=== PATIENT | male | born 1975 | race American Indian/Alaskan Native ===

== ENCOUNTER 2016-04-25 20:00 | Inpatient (IN) | payer OTHER ==
[2016-04-25] MEDS ORDERED: CATAPRES PO ONE (20:26)
--- NOTE | 2016-04-25 20:31 | Emergency Department Report ---
Chief Complaint: Neuro Symptoms/Deficit Stated Complaint: HBP Time Seen by Provider: 04/25/16 20:26 - HPI History of Present Illness: The 10-year-old male comes in for elevated blood pressure worsening of his right- sided arm deficit as well as facial droop of the right side. 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 He reports he does take his blood pressure medicine. His new deficits started about an hour ago. .he reports that he's having numbness to the right arm as well as the right leg which he reports is new - Exam Vital Signs: Vital Signs 04/25/16 20:09 Temperature 98.4 F Pulse Rate 108 H Respiratory 22 Rate Blood Pressure 201/152 O2 Sat by Pulse 100 Oximetry MSE screening note: Focused history and physical exam performed. Due to findings the following was ordered: CBC BMP CAT scan of the brain without contrast. ED Disposition for MSE Condition: Stable
[2016-04-25 20:48] LABS: Hematocrit 39.1 % (35.5-45.6); Hemoglobin 12.9 gm/dl (11.8-15.2); Mean Corpuscular HGB Conc 33 % (32-34); Mean Corpuscular Hemoglobin 28 pg (28-32); Mean Corpuscular Volume 86 fl (84-94); Platelet Count 250 K/mm3 (140-440); Red Blood Count 4.56 M/mm3 (3.65-5.03); Red Cell Distribution Width 14.6 % (13.2-15.2)
--- NOTE | 2016-04-25 20:53 | Emergency Department Report ---
HPI - General Chief Complaint: Neuro Symptoms/Deficit Time Seen by Provider: 04/25/16 20:26 - HPI HPI: Room 21 The patient is a 40-year-old male presenting with a chief complaint of right- sided weakness. The patient states between 1.5 and 3 hours ago he had onset of right-sided weakness. The patient states he had decreased weakness in his right upper and right lower extremity. The patient states his fiance notices speech was more slurred than normal. Patient states she subsequently came to the ED. Patient gives a history of a previous CVA [id number] with multiple subsequent TIAs. The patient states he has residual weakness on his right side however the weakness noted today is significantly greater than his residual weakness Location: Right side Duration: [see above] Quality: Weakness Severity: Moderate Modifying factors: [see above] Context: [see above] Mode of transportation: [not driving] ED Past Medical Hx - Past Medical History Hx Hypertension: Yes Hx CVA: Yes (May 2015 with residual right-sided weakness. Multiple TIAs) - Surgical History Past Surgical History?: No - Family History Family history: no significant - Social History Smoking Status: Current Every Day Smoker (1/2 pack per day) Substance Use Type: Alcohol (occasional), Marijuana ED Review of Systems ROS: Stated complaint: HBP Other details as noted in HPI Comment: All other systems reviewed and negative Constitutional: denies: chills, fever Eyes: denies: eye pain, eye discharge, vision change ENT: denies: ear pain, throat pain Respiratory: denies: cough, shortness of breath, wheezing Cardiovascular: denies: chest pain, palpitations Endocrine: no symptoms reported Gastrointestinal: denies: abdominal pain, nausea, diarrhea Genitourinary: denies: urgency, dysuria Musculoskeletal: denies: back pain, joint swelling, arthralgia Skin: denies: rash, lesions Neurological: weakness, paresthesias. denies: headache Psychiatric: denies: anxiety, depression Hematological/Lymphatic: denies: easy bleeding, easy bruising Physical Exam - Physical Exam Vital Signs: Vital Signs 04/25/16 20:09 Temperature 98.4 F Pulse Rate 108 H Respiratory 22 Rate Blood Pressure 201/152 O2 Sat by Pulse 100 Oximetry Physical Exam: GENERAL: The patient is well-developed well-nourished male sitting on stretcher not appearing to be in acute distress. [] HEENT: Normocephalic. Atraumatic. Extraocular motions are intact. Patient has moist mucous membranes. NECK: Supple. Trachea midline CHEST/LUNGS: Clear to auscultation. There is no respiratory distress noted. HEART/CARDIOVASCULAR: Regular. There is no tachycardia. There is no gallop rub or murmur. ABDOMEN: Abdomen is soft, nontender. Patient has normal bowel sounds. There is no abdominal distention. SKIN: There is no rash. There is no edema. There is no diaphoresis. NEURO: The patient is awake, alert, and oriented. The patient is cooperative. Cranial nerves II through XII grossly intact with exception of right facial droop and patient exhibits decreased right shoulder shrug. [5+5, right network internship 4+ 5. The patient has normal speech. NIHSS = 5 MUSCULOSKELETAL: There is no evidence of acute injury. ED Course Vital Signs 04/25/16 20:09 Temperature 98.4 F Pulse Rate 108 H Respiratory 22 Rate Blood Pressure 201/152 O2 Sat by Pulse 100 Oximetry - Consultations Consultation #1: 04/25/16 20:54 Tele-Neurology paged 21:05-case discussed with Dr. Farmer. Will evaluate patient Case discussed Dr. Farmer. He recommends giving TPA ( blood pressure is controlled being less than 185/110 04/25/16 21:05 04/25/16 21:25 ED Medical Decision Making - Lab Data Result diagrams: 04/25/16 Unknown 04/25/16 Unknown Laboratory Tests 04/25/16 04/25/16 04/25/16 Unknown Unknown Unknown WBC 7.0 RBC 4.56 Hgb 12.9 Hct 39.1 MCV 86 MCH 28 MCHC 33 RDW 14.6 Plt Count 250 PT 13.4 INR 1.03 APTT 26.2 Thrombin Time 15.9 Sodium 143 Potassium 4.7 Chloride 101.7 Carbon Dioxide 26 Anion Gap 20 BUN 14 Creatinine 1.1 Estimated GFR > 60 BUN/Creatinine Ratio 12.72 Glucose 93 Calcium 9.5 - EKG Data -: EKG Interpreted by Md EKG shows normal: sinus rhythm Rate: normal - EKG Data When compared to previous EKG there are: previous EKG unavailable Interpretation: no acute changes, unchanged when compared t (03/29/2016) - Radiology Data Radiology results: report reviewed (CT head), image reviewed (CT head) CT head (discussed with radiologist)-negative - Differential Diagnosis CVA, TIA Critical Care Time: Yes Critical care time in (mins) excluding proc time.: 30 Critical care attestation.: If time is entered above; I have spent that time in minutes in the direct care of this critically ill patient, excluding procedure time. ED Disposition Clinical Impression: CVA (cerebral vascular accident), Right sided weakness Disposition: OP ADMITTED IP TO THIS HOSP Is pt being admited?: Yes Does the pt Need Aspirin: No Condition: Serious Referrals: PRIMARY CARE, [Primary Care Provider] - 3-5 Days Time of Disposition: 21:27 (hospitalist paged)
[2016-04-25 21:00] LABS: BUN/Creatinine Ratio 12.72; Blood Urea Nitrogen 14 mg/dL (9-20); Calcium 9.5 mg/dL (8.4-10.2); Carbon Dioxide 26 mmol/L (22-30); Chloride 101.7 mmol/L (98-107); Glucose 93 mg/dL (75-100); Potassium 4.7 mmol/L (3.6-5.0); Sodium 143 mmol/L (137-145)
--- NOTE | 2016-04-25 21:01 | Cat Scan Report ---
FINAL REPORT PROCEDURE: CT HEAD/BRAIN WO CON TECHNIQUE: Computerized tomography of the head was performed without contrast material. HISTORY: NEURO DEFICITS COMPARISON: No prior studies are available for comparison. FINDINGS: Brain: No evidence of intracranial hemorrhage. No parenchymal hemorrhage, mass lesions or mass effect are seen. No abnormal extraxial fluid collects or masses are seen. Well-defined oval area of decreased density seen in the posterior limb of the left internal capsule consistent with an old lacunar infarct. Brain density otherwise appears normal. Ventricles: Ventricles are normal size and are midline. Bone Windows: No evidence of skull fracture. Paranasal sinuses: Nodular densities are seen in the right side of the sphenoid sinus posteriorly and in the posterior aspect of the left maxillary sinus. Mucous retention cysts are suspected. Polyps could present this manner per there is also opacification of 1 of the ethmoid air cells on the right. Visualized portions of the paranasal sinuses otherwise appear clear. Mastoid air cells: Clear IMPRESSION: Old lacunar infarct posterior limb left internal capsule. No acute intracranial abnormalities are seen. If symptoms persist or worsen consider follow-up CT scan or MRI for further evaluation. Paranasal sinus disease as described.
[2016-04-25 21:06] LABS: Anion Gap 20 mmol/L
[2016-04-25 21:14] LABS: INR 1.03 (0.87-1.13)
[2016-04-25 21:15] LABS: Partial Thromboplastin Time 26.2 Sec. (24.2-36.6)
[2016-04-25] MEDS ORDERED: ACTIVASE ONE (21:18)
[2016-04-25] MEDS ORDERED: NACL 0.9% IV ONE (21:22)
[2016-04-25] MEDS ORDERED: ACTIVASE IV ONE ×2 (21:22)
[2016-04-25] MEDS ORDERED: ZOFRAN IV ONE (21:29)
[2016-04-25] MEDS ORDERED: MORPHINE IV ONE (21:29)
[2016-04-25] MEDS: CARDENE DRIP 40 MG/200 ML 200 ML IV SCH (21:35)
--- NOTE | 2016-04-25 22:24 | History and Physical Report ---
History of Present Illness Date of examination: 04/25/16 History of present illness: 40-year-old man with a history of hypertension, CVA with right sides weakness, diabetes, TIAs comes emergency room with worsening right-sided weakness and dysarthria. Patient is on clonidine 3 times a day for blood pressure control, he does not take it as scheduled because it makes him very sleepy Patient denies chest pain, palpitation, shortness of breath, cough, abdominal pain, hematochezia, dysuria, frequency, fever chills, polydipsia polyuria, hot or cold intolerance, easy bruisability, or rash or bleeding from mucosal membrane, rhinorrhea, epistaxis, earache, tinnitus, blurry vision, eye discharge , anxiety, depression. Other review of systems negative PAST SURGICAL HISTORY: leg surgery SOCIAL HISTORY: Smoke half pack a day, marijuana use, occasional alcohol FAMILY HISTORY: Hypertension Medications and Allergies Allergies Allergy/AdvReac Type Severity Reaction Status Date / Time hydrocodone Allergy Itching Verified 04/25/16 20:08 Home Medications Medication Instructions Recorded Confirmed Last Taken Type Aspirin [Aspirin BABY CHEW TAB] 325 mg PO DAILY 04/26/16 04/26/16 Unknown History Clonidine HCl [Catapres] 0.3 mg PO BID 04/26/16 04/26/16 Unknown History Hydrochlorothiazide [HCTZ] 25 mg PO QDAY 04/26/16 04/26/16 Unknown History Lisinopril 20 mg PO DAILY 04/26/16 04/26/16 Unknown History Pantoprazole [Protonix TAB] 20 mg PO DAILY 04/26/16 04/26/16 Unknown History amLODIPine [Norvasc] 10 mg PO DAILY 04/26/16 04/26/16 Unknown History amLODIPine [Norvasc] 10 mg PO DAILY 04/26/16 04/26/16 Unknown History metFORMIN [Glucophage] 500 mg PO BID 04/26/16 04/26/16 Unknown History Active Meds: Active Medications Nicardipine/Sodium Chloride (Cardene Drip 40 Mg/200 Ml) 200 mls @ 25 mls/hr IV TITR SRIRAM; 5 MG/HR PRN Reason: Protocol Exam - Physical Exam Narrative exam: Gen. appearance: Patient lying in bed, no apparent distress HEENT: Normocephalic, atraumatic, pupils equally round and reactive to light, extraocular movement intact, and no sclericterus,. No JVD or thyromegaly or nodule,neck supple, no carotid bruit ,mucous membranes moist, no exudate or erythema Heart: S1, S2, regular rate and rhythm Lungs: Clear to auscultation bilaterally, breathing comfortable Abdomen: Positive bowel sounds, nontender, nondistended, no organomegaly Extremity: No edema, cyanosis, clubbing Skin: No rash, nodules, warm, dry Neuro: Oriented 3, cranial nerves II-12 intact, speech is slurred, RUE/RLE 2/5 - Constitutional Vitals: Temp Pulse Resp BP Pulse Ox 98.4 F 102 H 18 160/107 97 04/25/16 20:09 04/25/16 21:52 04/25/16 22:12 04/25/16 21:52 04/25/16 21:52 Results - Labs CBC & Chem 7: 04/25/16 Unknown 04/25/16 Unknown - Imaging and Cardiology EKG: image reviewed (nsr, 80, read by me) CT Scan - head: report reviewed Assessment and Plan CVA, s/p TPA HTN, uncontrolled DM2 Non-compliance Admit to medicine Do neurochecks, swallow screen Do MR head, echo, carotid doppler, lipid profile Consult neurology, PT/OT, critical care Start statin, no antiplatelet therapy DVT prophalaxis withh SCD Continue cardene drip for blood pressure control Check fingersticks, start insulin sliding scale
[2016-04-25] MEDS ORDERED: BENADRYL IV PRN (23:05)
[2016-04-25] MEDS ORDERED: BENADRYL ONE (23:12)
[2016-04-26] MEDS ORDERED: SODIUM CHLORIDE FLUSH SYRINGE 10 ML IV PRN (01:07)
[2016-04-26] MEDS ORDERED: ZOFRAN IV PRN (01:07)
[2016-04-26] MEDS ORDERED: DULCOLAX PR PRN (01:07)
--- NOTE | 2016-04-26 01:17 | Admit Criteria Form ---
Admission Criteria Documentation: NEUROLOGY GRG Clinical Indications for Admission to Inpatient Care (Place ' X' for any and all applicable criteria): Hospital admission is needed for appropriate care of the patient because of ANY ONE of the following: [ ]I. New-onset or worsening altered mental status remaining after emergency or observation level care (as appropriate) (9)(10)(11) [ ]II. Severe [employer] infections or inflammatory conditions, including ANY ONE of the following(1)(2)(3): [ ]a) Intracranial abscess [ ]b) Spinal abscess or myelitis [ ]c) Tuberculous or other nonbacterial, nonviral [employer] infection(8) [ ]III. Encephalitis(1)(2)(3) [ ]IV. Status epilepticus or repetitive seizures not controlled with emergent treatment [A] (7)(8) [ ]V. Transient alteration in consciousness with high-risk etiology; examples include (12)(13): [ ]a) Cardiovascular source [ ]b) Cataplexy [ ]. Cerebral aneurysm requiring ANY ONE of the following(14): [ ]a) IV antihypertensives or vasoactive agents [ ]b) Sedation and analgesia for suspected leak [ ]c) Need for external ventricular drainage and cerebral perfusion pressure monitoring [ ]d) Emergent evaluation to determine need for surgical clipping or endovascular coiling by interventional radiology. If surgery is required ( Also use Craniotomy, Supratentorial, for Surgery of Bleeding Intracranial Aneurysm (for bleeding aneurysm) or Craniotomy, Supratentorial (for nonbleeding aneurysm) as appropriate. [ ]VII. Altered mental status that is severe or persistent(16) [ ]VIII New-onset severe neurologic findings requiring inpatient care; examples include: [ ]a) Papilledema [ ]b) Cerebral edema [ ]c) Mass effect on imaging [ X]IX. New-onset severe neurologic symptom requiring inpatient care indicated by ANY ONE of the following: [ ]a) Aphasia(15) [ ]b) Weakness (grade 3 or less) [ ]c) Paralysis (eg, hemiplegia) [ ]d) Spasticity(16) [ ]e) Ataxia(17) [ ]f) Amnesia(18) [ ]g) Involuntary movements(19) [ ]h) Vertigo [ X]i) Other severe neurologic symptom not treatable at alternative level of care (eg, observation care) [ ]X. Guillain-[place] syndrome(20) [ ]XI. Myasthenia gravis crisis or inpatient monitoring need as indicated by ANY ONE of the following(21): [ ]a) Inadequate airway protection [ ]b) Respiratory insufficiency requiring intubation or inpatient. monitoring [ ]c) Progressive dysphagia with failure to thrive [ ]d) Intensive treatment (eg, course of plasmapheresis) with inadequate outpatient situation to monitor patients status [ ]XII. Multiple sclerosis or other acute demyelinating disease requiring inpatient care as indicated by ANY ONE of the following (22)(23): [ ]a) Acute severe deterioration requiring inpatient treatment (eg, IV steroids, plasmapheresis, close observation) [ ]b) Acute complication requiring inpatient care (eg, sepsis, severe decubitus, aspiration) [ ]XIII. Intracranial hypertension (eg, pseudotumor cerebri) requiring inpatient care (eg, acute visual loss, inadequate oral intake) (24) [ ]XIV.Parkinson disease requiring inpatient care (Also use Optimal Recovery Care Criteria or General Recovery Criteria as appropriate) indicated by ANY ONE of the following(25): [ ]a) Infection (eg, aspiration pneumonia) not treatable at alternative level of care [ ]b) Volume depletion not responsive to emergency and observation care treatment (as appropriate) [ ]c) Life-threatening agitation or psychotic behavior not treatable on emergency, observation care, or alternative level (eg, residential) basis [ ]d) Severe medication withdrawal effects (eg, freezing, neuroleptic malignant syndrome) not responsive to emergency and observation care treatment (as appropriate) [ ]e) Other severe manifestation not treatable at alternative level of care [ ]XV.Amyotrophic lateral sclerosis with inpatient care needs as indicated by ANY ONE of the following(26): [ ]a) Acute complications requiring inpatient care (Use Optimal Recovery Care Criteria or General Recovery Criteria as appropriate); examples include: [ ]i) Aspiration pneumonia [ ]ii) Sepsis [ ]b) Dehydration or hypovolemia (not responsive to emergency and observation care treatment as appropriate) AND artificial support desired [ ]c) Inadequate airway protection AND artificial support desired [ ]d) Severe ventilatory insufficiency AND artificial support desired [ ]XVI.Severe myopathy, neuropathy, or other neuromuscular disease as indicated by ANY ONE of the following: [ ]a) New-onset severe diffuse weakness (eg, strength 3/5 or less) [ ]b) Severe dysphagia [ ]c) Dyspnea at rest or with minimal exertion (new) [ ]d) Inadequate airway protection [ ]e) Inadequate ventilation as indicated by ANY ONE of the following : [ ]i) Partial pressure of carbon dioxide greater than 44 mm Hg (5.9 kPa) (new) [ ]ii) Reduced peak expiratory flow rate (new) [ ]iii) Vital capacity less than 50% of predicted ( less than 15 mL/kg) [ ]iv) Peak inspiratory force less negative than -30 cm H20 (-2942 Pa) [ ]XVII.Complications of congenital or degenerative disease (eg, infection, seizures, dehydration, injury) not responsive to emergency and observation care treatment (as appropriate ) [C](16)(29)(30) [ ]XVIII.Suspected or confirmed nerve or muscle toxic injury, including ANY ONE of the following: [ ]a) Rhabdomyolysis(31) [ ]b) Botulism(32) [ ]c) Other severe toxin-induced sign or symptom [ ]XIX. Neurologic trauma requiring inpatient treatment (medical) indicated by ANY ONE of the following(33)(34): [ ]a) Vital signs or neurologic signs more frequently than every 4 hours [ ]b) Hyperosmolar therapy [ ]c) Respiratory monitoring [ ]d) Intracranial pressure monitoring and treatment [ ]e) Stabilization and immobilization device placement (eg, braces, body jacket) [ ]f) Intubation & mechanical ventilation for airway protection or therapeutic hyperventilation [ ]g) Other treatment or monitoring needed that requires inpatient level of care [ ]XX.Complications of neurologic devices (eg, ventricular shunt, neurostimulator) requiring ANY ONE of the following(35)(36): [ ]a) IV antibiotics with monitoring while awaiting culture results [ ]b) Monitoring for hydrocephalus [ ]XXI Vasculitis with ANY ONE of the following(4)(5): [ ]a) Altered mental status [ ]b) Psychosis [ ]c) Seizures [ ]XXII. Neurology condition and ALL of the following: [ ]a) Symptom or finding for which emergency and observation care have failed or are not considered appropriate (Use General Criteria: Observation Care as appropriate) [ ]b) Presence of ANY ONE of the following: [ ]i) A General Admission Criteria [ ]ii A Pediatric General Admission Criteria The original [facility] content created by [facility] has been revised. The portions of the content which have been revised are identified through the use of italic text or in bold, and [facility] has neither reviewed nor approved the modified material. All other unmodified content is copyright [facility] Please see references footnoted in the original [facility] edition 2016 Admission Criteria Met: Yes
[2016-04-26] MEDS ORDERED: PROVENTIL IH PRN (02:00)
[2016-04-26] MEDS: TYLENOL PO PRN ×3 (02:02→19:56)
--- NOTE | 2016-04-26 06:40 | Cat Scan Report ---
FINAL REPORT PROCEDURE: CT HEAD/BRAIN WO CON TECHNIQUE: Computerized tomography of the head was performed without contrast material. HISTORY: severe headache s/p tpa COMPARISON: 04/25/2016 FINDINGS: Skull and scalp: Normal. Paranasal sinuses: There are polyps in the left maxillary sinus and sphenoid sinus.. Ventricles and subarachnoid spaces: Normal. Cerebrum: No evidence of hemorrhage, acute infarction or mass. There are old lacunar infarct defects in the left thalamus and left basal ganglia. Cerebellum and brainstem: No evidence of hemorrhage, acute infarction or mass. Vasculature: Normal. Comments: None. IMPRESSION: There is been no change since the prior study. There is no intracranial hemorrhage.
[2016-04-26] MEDS: CARDENE DRIP 40 MG/200 ML 200 ML IV SCH (07:05)
--- NOTE | 2016-04-26 07:12 | Progress Note ---
Assessment and Plan Right hemiparesis, r/o stroke Recommend: IV tPA protocol- close obs of BP's, blood sugar. Permissive htn within range MRI/A head PT/OT/ST when appropriate echo and carotids repeat CT head 24 hrs out from IVtPA initiation Continue care for his medical issues as you are doing antiplatelet therapy once [address] head negative, statin VTE prophylaxis Subjective Date of service: 04/26/16 Interval history: Pt admitted overnight with RHP, treated with IVtPA. In ICU for close observation. On my arrival he is alert and oriented, dysarthric. Objective - Vital Sign Vital Signs - 12hr 04/25/16 04/25/16 04/25/16 22:20 22:22 22:23 Temperature Pulse Rate 94 H 87 Pulse Rate [ Left Arm] Respiratory 19 15 Rate Respiratory 87 H Rate [Left Arm] Blood Pressure 156/94 156/94 Blood Pressure 156/94 [Left Arm] O2 Sat by Pulse 95 98 Oximetry O2 Sat by Pulse 99 Oximetry [Left Arm] 04/25/16 04/25/16 04/25/16 22:25 22:27 22:29 Temperature Pulse Rate 91 H 90 91 H Pulse Rate [ Left Arm] Respiratory 13 7 L 9 L Rate Respiratory Rate [Left Arm] Blood Pressure 158/95 158/95 158/95 Blood Pressure [Left Arm] O2 Sat by Pulse 97 99 99 Oximetry O2 Sat by Pulse Oximetry [Left Arm] 04/25/16 04/25/16 04/25/16 22:30 22:33 22:35 Temperature Pulse Rate 91 H 92 H 92 H Pulse Rate [ Left Arm] Respiratory 20 12 16 Rate Respiratory Rate [Left Arm] Blood Pressure 156/97 156/97 157/104 Blood Pressure [Left Arm] O2 Sat by Pulse 94 97 94 Oximetry O2 Sat by Pulse Oximetry [Left Arm] 04/25/16 04/25/16 04/25/16 22:37 22:39 22:40 Temperature Pulse Rate 88 93 H 91 H Pulse Rate [ 88 Left Arm] Respiratory 15 11 L 18 Rate Respiratory 16 Rate [Left Arm] Blood Pressure 157/104 157/104 163/100 Blood Pressure 157/104 [Left Arm] O2 Sat by Pulse 97 98 96 Oximetry O2 Sat by Pulse 87 Oximetry [Left Arm] 04/25/16 04/25/16 04/25/16 22:41 22:45 22:52 Temperature Pulse Rate 90 92 H Pulse Rate [ 92 H Left Arm] Respiratory 12 12 Rate Respiratory 18 Rate [Left Arm] Blood Pressure 163/100 161/107 Blood Pressure 155/101 [Left Arm] O2 Sat by Pulse 99 95 Oximetry O2 Sat by Pulse 98 Oximetry [Left Arm] 04/25/16 04/25/16 04/25/16 23:00 23:07 23:15 Temperature Pulse Rate 85 95 H Pulse Rate [ 85 Left Arm] Respiratory 16 13 Rate Respiratory Rate [Left Arm] Blood Pressure 160/97 169/106 Blood Pressure 160/97 [Left Arm] O2 Sat by Pulse 96 95 Oximetry O2 Sat by Pulse 96 Oximetry [Left Arm] 04/25/16 04/25/16 04/25/16 23:19 23:22 23:30 Temperature Pulse Rate 94 H 92 H Pulse Rate [ Left Arm] Respiratory 17 18 Rate Respiratory 16 Rate [Left Arm] Blood Pressure 167/104 169/106 Blood Pressure 169/106 [Left Arm] O2 Sat by Pulse 100 98 Oximetry O2 Sat by Pulse 95 Oximetry [Left Arm] 04/25/16 04/25/16 04/26/16 23:45 23:47 00:00 Temperature Pulse Rate 94 H 99 H 97 H Pulse Rate [ Left Arm] Respiratory 19 18 16 Rate Respiratory Rate [Left Arm] Blood Pressure 166/98 166/98 148/91 Blood Pressure [Left Arm] O2 Sat by Pulse 96 98 93 Oximetry O2 Sat by Pulse Oximetry [Left Arm] 04/26/16 04/26/16 04/26/16 00:01 00:05 00:22 Temperature Pulse Rate 94 H 109 H Pulse Rate [ 94 H Left Arm] Respiratory 12 14 Rate Respiratory 18 Rate [Left Arm] Blood Pressure 148/91 152/95 Blood Pressure 160/98 [Left Arm] O2 Sat by Pulse 98 98 Oximetry O2 Sat by Pulse 98 Oximetry [Left Arm] 04/26/16 04/26/16 04/26/16 00:27 00:30 00:45 Temperature Pulse Rate 102 H 93 H Pulse Rate [ Left Arm] Respiratory 25 H 12 Rate Respiratory Rate [Left Arm] Blood Pressure 162/92 160/101 Blood Pressure [Left Arm] O2 Sat by Pulse 100 94 93 Oximetry O2 Sat by Pulse Oximetry [Left Arm] 04/26/16 04/26/16 04/26/16 00:52 01:00 01:15 Temperature Pulse Rate 92 H 95 H Pulse Rate [ 97 H Left Arm] Respiratory 15 18 Rate Respiratory 17 Rate [Left Arm] Blood Pressure 162/98 161/94 Blood Pressure 158/98 [Left Arm] O2 Sat by Pulse 92 94 Oximetry O2 Sat by Pulse 98 Oximetry [Left Arm] 04/26/16 04/26/16 04/26/16 01:30 01:45 02:00 Temperature Pulse Rate 91 H 94 H 94 H Pulse Rate [ Left Arm] Respiratory 11 L 16 14 Rate Respiratory Rate [Left Arm] Blood Pressure 158/98 152/91 151/93 Blood Pressure [Left Arm] O2 Sat by Pulse 94 93 93 Oximetry O2 Sat by Pulse Oximetry [Left Arm] 04/26/16 04/26/16 04/26/16 02:15 02:30 02:45 Temperature Pulse Rate 93 H 90 89 Pulse Rate [ Left Arm] Respiratory 17 23 19 Rate Respiratory Rate [Left Arm] Blood Pressure 164/95 160/96 152/89 Blood Pressure [Left Arm] O2 Sat by Pulse 95 95 96 Oximetry O2 Sat by Pulse Oximetry [Left Arm] 04/26/16 04/26/16 04/26/16 02:52 03:00 03:15 Temperature Pulse Rate 90 92 H Pulse Rate [ 92 H Left Arm] Respiratory 11 L 14 Rate Respiratory 17 Rate [Left Arm] Blood Pressure 147/86 151/98 Blood Pressure 147/86 [Left Arm] O2 Sat by Pulse 96 95 Oximetry O2 Sat by Pulse 99 Oximetry [Left Arm] 04/26/16 04/26/16 04/26/16 03:22 03:24 03:30 Temperature Pulse Rate 92 H Pulse Rate [ 87 83 Left Arm] Respiratory 13 Rate Respiratory 12 12 Rate [Left Arm] Blood Pressure 163/102 Blood Pressure 151/98 160/91 [Left Arm] O2 Sat by Pulse 93 Oximetry O2 Sat by Pulse 99 99 Oximetry [Left Arm] 04/26/16 04/26/16 04/26/16 03:45 03:55 03:59 Temperature Pulse Rate 87 86 89 Pulse Rate [ Left Arm] Respiratory 12 15 12 Rate Respiratory Rate [Left Arm] Blood Pressure 147/73 147/73 147/73 Blood Pressure [Left Arm] O2 Sat by Pulse 95 99 97 Oximetry O2 Sat by Pulse Oximetry [Left Arm] 04/26/16 04/26/16 04/26/16 04:00 04:01 04:03 Temperature 97.7 F Pulse Rate 89 Pulse Rate [ Left Arm] Respiratory 11 L Rate Respiratory Rate [Left Arm] Blood Pressure 137/62 Blood Pressure [Left Arm] O2 Sat by Pulse 99 97 Oximetry O2 Sat by Pulse Oximetry [Left Arm] - General Apperance Constitutional: comfortable - Respiratory Respiratory: lungs clear - Neurologic Cranial nerve examination: PERRL, EOMI, VFF, tongue midline, facial droop Motor examination - right side: 3/5: biceps, triceps, wrist flexion, wrist extension, bottle washer, hip flexors, knee extensors, dorsiflexion, toe extension (EHL) , plantarflexion Motor examination - left side: 5/5: biceps, triceps, wrist flexion, wrist extension, bottle washer, hip flexors, knee extensors, dorsiflexion, toe extension (EHL) , plantarflexion Detailed sensory examination: light touch Reflex and gait examination: intact Reflexes: 1+: ankle, bicep, knee, tricep - Laboratory Findings CBC and BMP: 04/25/16 Unknown 04/25/16 Unknown Abnormal Lab Findings: Abnormal Labs 04/26/16 04/26/16 00:32 04:56 POC Glucose 131 H Triglycerides 262 H Cholesterol 229 H LDL Cholesterol Direct 148 H HDL Cholesterol 29 L - Diagnostic Findings Additional findings: reviewed both CT's of the head- no bleed
--- NOTE | 2016-04-26 12:54 | Echocardiography Report ---
Transthoracic Echocardiogram Indication: CVA BP: 163/98 HR: 86 Conclusions *The left ventricular chamber size is normal. *Septal wall hypertrophy is observed.Severe assymetric septal hypertrophy is observed. IVSd 2.25 cm and LVPWd 1.47 cm. *Global left ventricular systolic function is normal. *The estimated ejection fraction is 55-60%. *Abnormal left ventricular diastolic filling is observed, consistent with impaired relaxation. Findings Procedure Info: The study quality is fair. Left Ventricle: The left ventricular chamber size is normal. Septal wall hypertrophy is observed.Severe assymetric septal hypertrophy is observed. IVSd 2.25 cm and LVPWd 1.47 cm. Global left ventricular systolic function is normal. The estimated ejection fraction is 55-60%. Abnormal left ventricular diastolic filling is observed, consistent with impaired relaxation. Left Atrium: The left atrial chamber size is normal. Right Ventricle: The right ventricle wall thickness is normal. The right ventricular cavity size is normal. The right ventricular global systolic function is normal. Right Atrium: The right atrial cavity size is normal. Aortic Valve: The aortic valve is trileaflet. There is no evidence of aortic regurgitation. There is no evidence of aortic stenosis. Mitral Valve: The anterior leaflet of the mitral valve is thickened. There is trace of mitral regurgitation. There is no evidence of mitral stenosis. Tricuspid Valve: The tricuspid valve is not well visualized. There is trace tricuspid regurgitation. The right ventricular systolic pressure is calculated at 23 mmHg. No pulmonary hypertension is noted. There is no tricuspid stenosis. Pulmonic Valve: The pulmonic valve is not well visualized. There is no evidence of pulmonic regurgitation. There is no pulmonic stenosis. Pericardium: There is no pericardial effusion. No pleural effusion is present. Aorta: There is no dilatation of the aortic root. Pulmonary Artery: The main pulmonary artery is not well visualized. Measurements Chambers MM Name Value Normal Range IVSd (MM) 2.25 cm (0.6 - 1.1) LVPWd (MM) 1.47 cm (0.6 - 1.1) IVS:LVPW ratio 1.53 ratio - LVIDd (MM) 4.28 cm (3.7 - 5.6) LVIDs (MM) 2.29 cm (2 - 2.8) LV FS (Teichholz) (MM) 46.5 % - LV FS (cube) (MM) 46.5 % - EF Teichholz (MM) 78.2 % - Ao root diameter (MM) 3.9 cm (2 - 3.7) LA dimension (AP) MM 3.9 cm (1.9 - 4) LA:Ao ratio (MM) 1 ratio - AV cusp separation (MM) 2.5 cm (1.5 - 2.6) Chambers 2D Name Value Normal Range IVSd (2D) 2.41 cm (0.6 - 1.1) LVPWd 1.7 cm - LVPWd (2D) 1.71 cm (0.6 - 1.1) IVS:LVPW ratio (2D) 1.41 ratio - LVIDd 4 cm - LVIDs 2.6 cm - LVIDd (2D) 4.03 cm (3.7 - 5.6) LVIDs (2D) 2.59 cm (2 - 3.8) LV FS (Teichholz) (2D) 35.7 % - LV FS (cube) (2D) 35.7 % - LV EF (2D) 65 % - EF Teichholz (2D) 65.8 % - LA dimension 3.5 cm - Ao root diameter (2D) 3.3 cm (2 - 3.7) LA dimension (AP) 2D 3.5 cm (1.9 - 4) LA:Ao ratio (2D) 1.06 ratio - Volumes/Mass Name Value Normal Range LA ESV SP 4CH (MOD) 25 ml - LV EDV SP 4CH (MOD) 118 ml - LV ESV SP 4CH (MOD) 51 ml - EF SP 4CH (MOD) 57 % - Diastolic/Systolic Function Name Value Normal Range MV E-wave Vmax 0.54 m/sec - MV deceleration time 268 msec - MV A-wave Vmax 0.8 m/sec - MV E:A ratio 0.7 ratio - LV septal e' Vmax 0.07 m/sec - LV lateral e' Vmax 0.08 m/sec - LV E:e' septal ratio 7.8 ratio - LV E:e' lateral ratio 6.5 ratio - Aortic Valve Name Value Normal Range AV VTI 23.7 cm - AV mean gradient 4 mmHg - LVOT diameter 2.5 cm - LVOT Vmax 1.2 m/sec - LVOT peak gradient 6 mmHg - Tricuspid Valve Name Value Normal Range TR Vmax 2.25 m/sec - TR peak gradient 20 mmHg - RAP 3 mmHg - RVSP 23 mmHg - Pulmonic Valve/Qp:Qs Name Value Normal Range PV Vmax 0.65 m/sec - PV peak gradient 2 mmHg - PV acceleration time 109 msec -
--- NOTE | 2016-04-26 13:17 | Progress Note ---
Assessment and Plan Assessment and plan: Acute CVA, s/p TPA Malignant HTN DM2, on oral hypoglycemic medication hyperlipidemia Non-compliance tobacco abuse Plan: cont cardene drip, start on oral hypotensive meds wean off fron cardene drip as tolerated Do q4 neurochecks, passed swallow screen follow MR head, echo, carotid doppler, PT/OT, Started statin, antiplatelet therapy after 24h of post TPA get repeat CT after 24h of post TPA DVT prophalaxis with SCD Check fingersticks, cont insulin sliding scale The high probability of a clinically significant, sudden or life threatening deterioration of the system(s) required my full and direct attention, intervention and personal management. The aggregate critical care time was [34] minutes. This time is in addition to time spent performing reported procedures but includes the following: [X] Data Review and interpretation [X] Patient assessment and monitoring of vital signs [X] Documentation [C] Medication orders and management History Interval history: Patient seen and examined. Medical records and medication list reviewed. No acute event overnight noted by the RN. Patient denies any chest pain or difficulty breathing. Patient is tolerating diet. c/o right sided hameparesis Discussed plan of care at bedside with patient. Hospitalist Physical - Physical exam Narrative exam: GENERAL: well-developed obese AAM lying on bed appeared to be in no discomfort. HEENT: Normocephalic. Atraumatic. No conjunctival congestion or icterus. Patient has moist mucous membranes. NECK: Supple. Trachea midline. CHEST/LUNGS: Clear to auscultated bilaterally, breathing nonlabored. No wheezes crackles or rhonchi. HEART/CARDIOVASCULAR: Regular in rate and rhythm. S1 and S2 positive. ABDOMEN: Abdomen is soft, nontender. Patient has normal bowel sounds. SKIN: There is no rash. Warm and dry. NEURO: right sided weakness. Follows command. MUSCULOSKELETAL: No joint effusion or tenderness. EXTRIMITY: No edema, no cyanosis or clubbing. PSYCH: Cooperative. - Constitutional Vitals: Temp Pulse Resp BP Pulse Ox 98 F 82 12 146/82 98 04/26/16 08:00 04/26/16 11:55 04/26/16 12:00 04/26/16 12:00 04/26/16 12:00 Results - Labs CBC & Chem 7: 04/25/16 Unknown 04/25/16 Unknown Labs: Laboratory Last Values WBC 7.0 K/mm3 (4.5-11.0) 04/25/16 Unknown RBC 4.56 M/mm3 (3.65-5.03) 04/25/16 Unknown Hgb 12.9 gm/dl (11.8-15.2) 04/25/16 Unknown Hct 39.1 % (35.5-45.6) 04/25/16 Unknown MCV 86 fl (84-94) 04/25/16 Unknown MCH 28 pg (28-32) 04/25/16 Unknown MCHC 33 % (32-34) 04/25/16 Unknown RDW 14.6 % (13.2-15.2) 04/25/16 Unknown Plt Count 250 K/mm3 (140-440) 04/25/16 Unknown PT 13.4 Sec. (12.2-14.9) 04/25/16 Unknown INR 1.03 (0.87-1.13) 04/25/16 Unknown APTT 26.2 Sec. (24.2-36.6) 04/25/16 Unknown Thrombin Time 15.9 Sec. (15.1-19.6) 04/25/16 Unknown Sodium 143 mmol/L (137-145) 04/25/16 Unknown Potassium 4.7 mmol/L (3.6-5.0) 04/25/16 Unknown Chloride 101.7 mmol/L (98-107) 04/25/16 Unknown Carbon Dioxide 26 mmol/L (22-30) 04/25/16 Unknown Anion Gap 20 mmol/L 04/25/16 Unknown BUN 14 mg/dL (9-20) 04/25/16 Unknown Creatinine 1.1 mg/dL (0.8-1.5) 04/25/16 Unknown Estimated GFR > 60 ml/min 04/25/16 Unknown BUN/Creatinine Ratio 12.72 % 04/25/16 Unknown Glucose 93 mg/dL (75-100) 04/25/16 Unknown POC Glucose 131 (70-105) H 04/26/16 00:32 Calcium 9.5 mg/dL (8.4-10.2) 04/25/16 Unknown Triglycerides 262 mg/dL (2-149) H 04/26/16 04:56 Cholesterol 229 mg/dL (50-199) H 04/26/16 04:56 LDL Cholesterol Direct 148 mg/dL (50-130) H 04/26/16 04:56 HDL Cholesterol 29 mg/dL (40-59) L 04/26/16 04:56 Cholesterol/HDL Ratio 7.89 % 04/26/16 04:56
[2016-04-26] MEDS: ULTRAM PO PRN ×2 (13:41→19:55)
--- NOTE | 2016-04-26 15:06 | Progress Note ---
Subjective Date of service: 04/26/16 Principal diagnosis: Hypertensive Urgency; TIA Interval history: seen and examined at bedside; 24hour events reviewed; nursing and respiratory care staff consulted; no adverse overnight events reported to me; Objective Vital Signs - 12hr 04/26/16 04/26/16 04/26/16 03:15 03:22 03:24 Temperature Pulse Rate 92 H Pulse Rate [ 87 83 Left Arm] Respiratory 14 Rate Respiratory 12 12 Rate [Left Arm] Blood Pressure 151/98 Blood Pressure 151/98 160/91 [Left Arm] O2 Sat by Pulse 95 Oximetry O2 Sat by Pulse 99 99 Oximetry [Left Arm] 04/26/16 04/26/16 04/26/16 03:30 03:45 03:55 Temperature Pulse Rate 92 H 87 86 Pulse Rate [ Left Arm] Respiratory 13 12 15 Rate Respiratory Rate [Left Arm] Blood Pressure 163/102 147/73 147/73 Blood Pressure [Left Arm] O2 Sat by Pulse 93 95 99 Oximetry O2 Sat by Pulse Oximetry [Left Arm] 04/26/16 04/26/16 04/26/16 03:59 04:00 04:01 Temperature Pulse Rate 89 90 Pulse Rate [ Left Arm] Respiratory 12 9 L Rate Respiratory Rate [Left Arm] Blood Pressure 147/73 137/62 Blood Pressure [Left Arm] O2 Sat by Pulse 97 99 99 Oximetry O2 Sat by Pulse Oximetry [Left Arm] 04/26/16 04/26/16 04/26/16 04:03 04:15 04:30 Temperature 97.7 F Pulse Rate 93 H 88 Pulse Rate [ Left Arm] Respiratory 14 14 Rate Respiratory Rate [Left Arm] Blood Pressure 137/62 144/88 Blood Pressure [Left Arm] O2 Sat by Pulse 96 94 Oximetry O2 Sat by Pulse Oximetry [Left Arm] 04/26/16 04/26/16 04/26/16 04:45 04:52 05:00 Temperature Pulse Rate 90 87 Pulse Rate [ 86 Left Arm] Respiratory 13 15 Rate Respiratory 16 Rate [Left Arm] Blood Pressure 144/88 146/87 Blood Pressure 146/87 [Left Arm] O2 Sat by Pulse 98 94 Oximetry O2 Sat by Pulse Oximetry [Left Arm] 04/26/16 04/26/16 04/26/16 05:15 05:30 05:45 Temperature Pulse Rate 96 H 92 H 95 H Pulse Rate [ Left Arm] Respiratory 13 11 L 15 Rate Respiratory Rate [Left Arm] Blood Pressure 146/87 142/93 142/93 Blood Pressure [Left Arm] O2 Sat by Pulse 98 94 97 Oximetry O2 Sat by Pulse Oximetry [Left Arm] 04/26/16 04/26/16 04/26/16 06:00 06:32 06:45 Temperature Pulse Rate 88 90 86 Pulse Rate [ Left Arm] Respiratory 18 15 Rate Respiratory Rate [Left Arm] Blood Pressure 152/88 152/88 145/88 Blood Pressure [Left Arm] O2 Sat by Pulse 94 98 Oximetry O2 Sat by Pulse Oximetry [Left Arm] 04/26/16 04/26/16 04/26/16 06:51 07:00 07:15 Temperature Pulse Rate 82 83 86 Pulse Rate [ 81 Left Arm] Respiratory 15 13 12 Rate Respiratory 14 Rate [Left Arm] Blood Pressure 145/88 145/88 163/98 Blood Pressure 163/98 [Left Arm] O2 Sat by Pulse 98 98 99 Oximetry O2 Sat by Pulse 97 Oximetry [Left Arm] 04/26/16 04/26/16 04/26/16 07:19 07:21 07:30 Temperature Pulse Rate 85 86 87 Pulse Rate [ Left Arm] Respiratory 14 13 12 Rate Respiratory Rate [Left Arm] Blood Pressure 163/98 145/88 160/92 Blood Pressure [Left Arm] O2 Sat by Pulse 98 98 96 Oximetry O2 Sat by Pulse Oximetry [Left Arm] 04/26/16 04/26/16 04/26/16 07:45 08:00 08:15 Temperature 98 F Pulse Rate 93 H 91 H 87 Pulse Rate [ Left Arm] Respiratory 13 14 16 Rate Respiratory Rate [Left Arm] Blood Pressure 160/92 166/96 166/96 Blood Pressure 166/96 [Left Arm] O2 Sat by Pulse 98 95 97 Oximetry O2 Sat by Pulse Oximetry [Left Arm] 04/26/16 04/26/16 04/26/16 08:31 08:45 09:00 Temperature Pulse Rate 84 85 82 Pulse Rate [ 89 Left Arm] Respiratory 15 17 14 Rate Respiratory 13 Rate [Left Arm] Blood Pressure 166/96 166/96 154/88 Blood Pressure 154/88 [Left Arm] O2 Sat by Pulse 97 96 91 Oximetry O2 Sat by Pulse 95 Oximetry [Left Arm] 04/26/16 04/26/16 04/26/16 09:03 09:05 09:15 Temperature Pulse Rate 83 82 84 Pulse Rate [ Left Arm] Respiratory 15 15 14 Rate Respiratory Rate [Left Arm] Blood Pressure 154/88 154/88 154/88 Blood Pressure [Left Arm] O2 Sat by Pulse 96 95 96 Oximetry O2 Sat by Pulse Oximetry [Left Arm] 04/26/16 04/26/16 04/26/16 09:31 09:45 10:00 Temperature Pulse Rate 87 86 94 H Pulse Rate [ Left Arm] Respiratory 18 14 12 Rate Respiratory 84 H Rate [Left Arm] Blood Pressure 154/88 154/88 160/95 Blood Pressure 160/95 [Left Arm] O2 Sat by Pulse 98 94 Oximetry O2 Sat by Pulse 95 Oximetry [Left Arm] 04/26/16 04/26/16 04/26/16 10:07 10:15 10:31 Temperature Pulse Rate 85 85 87 Pulse Rate [ Left Arm] Respiratory 11 L 12 17 Rate Respiratory Rate [Left Arm] Blood Pressure 160/95 160/95 160/95 Blood Pressure [Left Arm] O2 Sat by Pulse 98 99 Oximetry O2 Sat by Pulse Oximetry [Left Arm] 04/26/16 04/26/16 04/26/16 10:45 11:00 11:15 Temperature Pulse Rate 86 87 83 Pulse Rate [ 82 Left Arm] Respiratory 13 20 19 Rate Respiratory 13 Rate [Left Arm] Blood Pressure 160/95 160/95 146/82 Blood Pressure 146/88 [Left Arm] O2 Sat by Pulse 98 98 98 Oximetry O2 Sat by Pulse 97 Oximetry [Left Arm] 04/26/16 04/26/16 04/26/16 11:31 11:40 11:45 Temperature Pulse Rate 86 83 83 Pulse Rate [ Left Arm] Respiratory 16 15 16 Rate Respiratory Rate [Left Arm] Blood Pressure 146/82 160/95 146/82 Blood Pressure [Left Arm] O2 Sat by Pulse 97 97 98 Oximetry O2 Sat by Pulse Oximetry [Left Arm] 04/26/16 04/26/16 04/26/16 11:55 12:00 12:01 Temperature Pulse Rate 82 87 Pulse Rate [ Left Arm] Respiratory 12 17 Rate Respiratory 12 Rate [Left Arm] Blood Pressure 146/82 146/82 Blood Pressure 146/82 [Left Arm] O2 Sat by Pulse 98 98 Oximetry O2 Sat by Pulse 98 Oximetry [Left Arm] 04/26/16 04/26/16 04/26/16 12:31 13:00 13:31 Temperature Pulse Rate 86 93 H 88 Pulse Rate [ Left Arm] Respiratory 16 19 16 Rate Respiratory Rate [Left Arm] Blood Pressure 146/82 169/101 169/101 Blood Pressure 169/101 [Left Arm] O2 Sat by Pulse 99 98 97 Oximetry O2 Sat by Pulse Oximetry [Left Arm] 04/26/16 04/26/16 04/26/16 13:34 14:00 14:31 Temperature Pulse Rate 87 87 87 Pulse Rate [ 87 Left Arm] Respiratory 15 15 12 Rate Respiratory 13 Rate [Left Arm] Blood Pressure 146/82 151/83 169/101 Blood Pressure 151/83 [Left Arm] O2 Sat by Pulse 97 97 97 Oximetry O2 Sat by Pulse 98 Oximetry [Left Arm] CBC and BMP: 04/25/16 Unknown 04/25/16 Unknown ABG, PT/INR, D-dimer: PT/INR, D-dimer PT 13.4 Sec. (12.2-14.9) 04/25/16 Unknown INR 1.03 (0.87-1.13) 04/25/16 Unknown Abnormal lab findings: Abnormal Labs 04/26/16 04/26/16 00:32 04:56 POC Glucose 131 H Triglycerides 262 H Cholesterol 229 H LDL Cholesterol Direct 148 H HDL Cholesterol 29 L
--- NOTE | 2016-04-26 15:51 | Consultation ---
History of Present Illness Consult date: 04/26/16 Requesting physician: COOPER SANTIAGO Reason for consult: other (Hypertensive Emergency; ? CVA) History of present illness: PULMONARY CONSULT NOTE (Full dictation #) Please see dictated notes for full details Medications and Allergies Allergies Allergy/AdvReac Type Severity Reaction Status Date / Time hydrocodone Allergy Itching Verified 04/25/16 20:08 Active Meds: Active Medications Acetaminophen (Tylenol) 650 mg PO Q4H PRN PRN Reason: Pain, Mild (1-3) Last Admin: 04/26/16 10:18 Dose: 650 mg Albuterol (Proventil) 2.5 mg IH Q3HRT PRN PRN Reason: Shortness Of Breath Aspirin (Aspirin) 325 mg PO QDAY SRIRAM Bisacodyl (Dulcolax) 10 mg WA QDAY PRN PRN Reason: Constipation Carvedilol (Coreg) 6.25 mg PO BID SRIRAM Diphenhydramine HCl (Benadryl) 25 mg IV Q6H PRN PRN Reason: Itching Last Admin: 04/25/16 23:27 Dose: 25 mg Nicardipine/Sodium Chloride (Cardene Drip 40 Mg/200 Ml) 200 mls @ 25 mls/hr IV TITR SRIRAM; 5 MG/HR PRN Reason: Protocol Last Admin: 04/26/16 07:05 Dose: 20 mls/hr Lisinopril (Zestril) 40 mg PO QDAY SRIRAM Magnesium Hydroxide (Milk Of Magnesia) 30 ml PO Q4H PRN PRN Reason: Constipation Ondansetron HCl (Zofran) 4 mg IV Q8H PRN PRN Reason: N/V unrelieved by Reglan Simvastatin (Zocor) 20 mg PO QHS SRIRAM Sodium Chloride (Sodium Chloride Flush Syringe 10 Ml) 10 ml IV PRN PRN PRN Reason: LINE FLUSH Tramadol HCl (Ultram) 50 mg PO Q6H PRN PRN Reason: Pain, Moderate (4-6) Last Admin: 04/26/16 13:41 Dose: 50 mg Physical Examination Vital signs: Vital Signs Temp Pulse Resp BP Pulse Ox 98.4 F 108 H 22 201/152 100 04/25/16 20:09 04/25/16 20:09 04/25/16 20:09 04/25/16 20:09 04/25/16 20:09 Results - Laboratory Findings CBC and BMP: 04/25/16 Unknown 04/25/16 Unknown PT/INR, D-dimer PT 13.4 Sec. (12.2-14.9) 04/25/16 Unknown INR 1.03 (0.87-1.13) 04/25/16 Unknown Abnormal lab findings: Abnormal Labs 04/26/16 04/26/16 00:32 04:56 POC Glucose 131 H Triglycerides 262 H Cholesterol 229 H LDL Cholesterol Direct 148 H HDL Cholesterol 29 L
--- NOTE | 2016-04-26 22:39 | Cat Scan Report ---
FINAL REPORT PROCEDURE: CT HEAD/BRAIN WO CON TECHNIQUE: Computerized tomography of the head was performed without contrast material. HISTORY: s/p TPA COMPARISON: 04/26/2016 FINDINGS: Skull and scalp: Normal. Paranasal sinuses: There are polyps or retention cysts in the left maxillary sinus and sphenoid sinus.. Ventricles and subarachnoid spaces: Normal. Cerebrum: No evidence of hemorrhage, acute infarction or mass. 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 Cerebellum and brainstem: No evidence of hemorrhage, acute infarction or mass. Vasculature: Normal. Comments: None. IMPRESSION: No acute abnormality is identified. There is no intracranial hemorrhage.
[2016-04-26] MEDS: ASPIRIN PO SCH (22:49)
[2016-04-26] MEDS: COREG PO SCH (22:49)
[2016-04-26] MEDS: ZOCOR PO SCH (22:49)
[2016-04-27] MEDS: APRESOLINE IV PRN (07:30)
[2016-04-27] MEDS ORDERED: NORMODYNE IV ONE (09:00)
[2016-04-27] MEDS: ASPIRIN PO SCH (09:50)
[2016-04-27] MEDS ORDERED: NORVASC PO SCH (10:00)
[2016-04-27] MEDS: ZESTRIL PO SCH (10:15)
[2016-04-27] MEDS: COREG PO SCH ×2 (10:17→22:34)
[2016-04-27] MEDS: PROCARDIA XL PO SCH ×2 (12:10→22:38)
[2016-04-27] MEDS: GLUCOPHAGE PO SCH ×2 (12:10→17:30)
[2016-04-27] MEDS: HCTZ PO SCH (12:10)
[2016-04-27] MEDS: PROTONIX PO SCH (12:10)
[2016-04-27] MEDS: HABITROL TD SCH (12:45)
--- NOTE | 2016-04-27 13:28 | Progress Note ---
Assessment and Plan Patient sleeping at this time. He is on room air. O2 satuaration 99%Blood pressure running slightly high. Can transfer to telemetry from pulmonary point of view. - Patient Problems (1) CVA (cerebral vascular accident) Current Visit: Yes Status: Acute Plan to address problem: Management as per neurology. (2) Right sided weakness Current Visit: Yes Status: Acute Plan to address problem: Recommend physical therapy. Management as per primary care and neurology. (3) Hypertension Current Visit: Yes Status: Acute Plan to address problem: Management as per primary care. Subjective Date of service: 04/27/16 Interval history: Patient sleeping at this time. He is on room air. O2 satuaration 99%Blood pressure running slightly high. Can transfer to telemetry from pulmonary point of view. Objective Vital Signs - 12hr 04/27/16 04/27/16 04/27/16 01:25 01:30 01:35 Temperature Pulse Rate 77 76 90 Pulse Rate [ From Monitor] Respiratory 15 13 Rate Blood Pressure 148/93 148/93 O2 Sat by Pulse 99 99 Oximetry 04/27/16 04/27/16 04/27/16 02:00 02:30 03:00 Temperature Pulse Rate 77 72 69 Pulse Rate [ From Monitor] Respiratory 14 13 13 Rate Blood Pressure 158/98 146/88 143/93 O2 Sat by Pulse 100 98 99 Oximetry 04/27/16 04/27/16 04/27/16 03:30 04:00 04:17 Temperature 97.8 F Pulse Rate 70 70 66 Pulse Rate [ From Monitor] Respiratory 10 L 14 12 Rate Blood Pressure 156/96 152/97 152/97 O2 Sat by Pulse 99 97 99 Oximetry 04/27/16 04/27/16 04/27/16 04:30 05:00 05:30 Temperature Pulse Rate 74 77 76 Pulse Rate [ From Monitor] Respiratory 11 L 13 11 L Rate Blood Pressure 161/99 164/103 149/99 O2 Sat by Pulse 99 99 99 Oximetry 04/27/16 04/27/16 04/27/16 06:00 06:09 06:30 Temperature Pulse Rate 63 68 70 Pulse Rate [ 68 From Monitor] Respiratory 11 L 12 14 Rate Blood Pressure 159/108 159/108 167/107 O2 Sat by Pulse 98 98 98 Oximetry 04/27/16 04/27/16 04/27/16 06:37 07:01 07:14 Temperature 97.6 F Pulse Rate 77 67 Pulse Rate [ From Monitor] Respiratory 13 12 Rate Blood Pressure 167/107 176/116 O2 Sat by Pulse 100 99 Oximetry 04/27/16 04/27/16 04/27/16 07:30 08:00 08:30 Temperature Pulse Rate 74 84 74 Pulse Rate [ From Monitor] Respiratory 15 12 14 Rate Blood Pressure 178/115 204/119 187/108 O2 Sat by Pulse 99 100 100 Oximetry 04/27/16 04/27/16 04/27/16 09:00 09:05 09:30 Temperature Pulse Rate 78 77 79 Pulse Rate [ From Monitor] Respiratory 14 18 14 Rate Blood Pressure 190/120 190/120 181/122 O2 Sat by Pulse 100 100 99 Oximetry 04/27/16 04/27/16 04/27/16 09:40 10:00 10:15 Temperature Pulse Rate 77 Pulse Rate [ From Monitor] Respiratory 15 Rate Blood Pressure 172/128 180/102 162/128 O2 Sat by Pulse 98 Oximetry 04/27/16 04/27/16 04/27/16 10:17 10:23 10:30 Temperature Pulse Rate 84 77 Pulse Rate [ From Monitor] Respiratory 14 12 Rate Blood Pressure 162/128 180/102 170/103 O2 Sat by Pulse 99 98 Oximetry 04/27/16 04/27/16 04/27/16 11:00 11:30 12:00 Temperature 98.2 F Pulse Rate 81 80 86 Pulse Rate [ From Monitor] Respiratory 14 13 16 Rate Blood Pressure 171/107 148/102 161/93 O2 Sat by Pulse 97 98 98 Oximetry Constitutional: no acute distress, asleep Eyes: non-icteric ENT: oropharynx moist Neck: supple, no lymphadenopathy Ascultation: Bilateral: clear Cardiovascular: regular rate and rhythm Gastrointestinal: normoactive bowel sounds, soft, non-tender Integumentary: normal Extremities: no cyanosis, no edema Neurologic: pupils equal and round, CN II-XII normal, other (Right sided weakness.) CBC and BMP: 04/25/16 Unknown 04/25/16 Unknown ABG, PT/INR, D-dimer: PT/INR, D-dimer PT 13.4 Sec. (12.2-14.9) 04/25/16 Unknown INR 1.03 (0.87-1.13) 04/25/16 Unknown Abnormal lab findings: Abnormal Labs 04/26/16 04/26/16 00:32 04:56 POC Glucose 131 H Triglycerides 262 H Cholesterol 229 H LDL Cholesterol Direct 148 H HDL Cholesterol 29 L
[2016-04-27] MEDS: ULTRAM PO PRN (19:37)
[2016-04-27] MEDS: TYLENOL PO PRN (19:40)
[2016-04-27] MEDS: ZOCOR PO SCH (22:33)
[2016-04-27] MEDS: MILK OF MAGNESIA PO PRN (22:35)
[2016-04-28] MEDS: HABITROL TD SCH (09:05)
[2016-04-28] MEDS: ASPIRIN PO SCH (09:07)
[2016-04-28] MEDS: COREG PO SCH ×2 (09:08→21:46)
[2016-04-28] MEDS: GLUCOPHAGE PO SCH ×2 (09:08→18:11)
[2016-04-28] MEDS: PROTONIX PO SCH (09:08)
[2016-04-28] MEDS: HCTZ PO SCH (09:09)
[2016-04-28] MEDS: ZESTRIL PO SCH (09:09)
[2016-04-28] MEDS: PROCARDIA XL PO SCH ×2 (09:09→21:47)
--- NOTE | 2016-04-28 09:43 | XRay Report ---
ROUTINE CHEST, TWO VIEWS: HISTORY: Hypertension, CVA. The trachea, heart, mediastinal contour, lung gama and bony thorax are unremarkable. IMPRESSION: Unremarkable chest x-ray.
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
[2016-04-28] MEDS ORDERED: ALUM-MAG HYDROX-SIMETH 200-200-20MG/5ML PO PRN (10:53)
--- NOTE | 2016-04-28 11:30 | Progress Note ---
Assessment and Plan Assessment and plan: Acute CVA, s/p TPA Malignant HTN DM2, on oral hypoglycemic medication hyperlipidemia Non-compliance tobacco abuse Plan: weaned off from cardene drip Pt on coreg, hydralazine, HCTZ and procardia BP continue q4 neurochecks, passed swallow screen pending MR head, 2d echo showed normal EF, carotid doppler showed <50% stenosis, PT/OT eval pending Started statin, antiplatelet therapy after 24h of post TPA repeat CT after 24h of post TPA did not show any hemorrhage DVT prophalaxis with SCD Check fingersticks, cont insulin sliding scale patient will be transfer to telemetry when bed available He will require skilled PT, CM notified History Interval history: Patient seen and examined. Medical records and medication list reviewed. No acute event overnight noted by the RN. Patient denies any chest pain or difficulty breathing. Patient is tolerating diet. Continue c/o right sided hameparesis Blood pressure much improved today. Had PT evaluation yesterday MRI brain still pending, he also complains of indigestion, started on Maalox Discussed plan of care at bedside with patient. Hospitalist Physical - Physical exam Narrative exam: GENERAL: well-developed obese AAM lying on bed appeared to be in no discomfort. HEENT: Normocephalic. Atraumatic. No conjunctival congestion or icterus. Patient has moist mucous membranes. NECK: Supple. Trachea midline. CHEST/LUNGS: Clear to auscultated bilaterally, breathing nonlabored. No wheezes crackles or rhonchi. HEART/CARDIOVASCULAR: Regular in rate and rhythm. S1 and S2 positive. ABDOMEN: Abdomen is soft, nontender. Patient has normal bowel sounds. SKIN: There is no rash. Warm and dry. NEURO: right sided weakness. Follows command. MUSCULOSKELETAL: No joint effusion or tenderness. EXTRIMITY: No edema, no cyanosis or clubbing. PSYCH: Cooperative. - Constitutional Vitals: Temp Pulse Resp BP Pulse Ox 97.6 F 85 17 146/90 96 04/28/16 07:44 04/28/16 10:31 04/28/16 10:31 04/28/16 10:31 04/28/16 10:31 Results - Labs CBC & Chem 7: 04/25/16 Unknown 04/25/16 Unknown Labs: Laboratory Last Values WBC 7.0 K/mm3 (4.5-11.0) 04/25/16 Unknown RBC 4.56 M/mm3 (3.65-5.03) 04/25/16 Unknown Hgb 12.9 gm/dl (11.8-15.2) 04/25/16 Unknown Hct 39.1 % (35.5-45.6) 04/25/16 Unknown MCV 86 fl (84-94) 04/25/16 Unknown MCH 28 pg (28-32) 04/25/16 Unknown MCHC 33 % (32-34) 04/25/16 Unknown RDW 14.6 % (13.2-15.2) 04/25/16 Unknown Plt Count 250 K/mm3 (140-440) 04/25/16 Unknown PT 13.4 Sec. (12.2-14.9) 04/25/16 Unknown INR 1.03 (0.87-1.13) 04/25/16 Unknown APTT 26.2 Sec. (24.2-36.6) 04/25/16 Unknown Thrombin Time 15.9 Sec. (15.1-19.6) 04/25/16 Unknown Sodium 143 mmol/L (137-145) 04/25/16 Unknown Potassium 4.7 mmol/L (3.6-5.0) 04/25/16 Unknown Chloride 101.7 mmol/L (98-107) 04/25/16 Unknown Carbon Dioxide 26 mmol/L (22-30) 04/25/16 Unknown Anion Gap 20 mmol/L 04/25/16 Unknown BUN 14 mg/dL (9-20) 04/25/16 Unknown Creatinine 1.1 mg/dL (0.8-1.5) 04/25/16 Unknown Estimated GFR > 60 ml/min 04/25/16 Unknown BUN/Creatinine Ratio 12.72 % 04/25/16 Unknown Glucose 93 mg/dL (75-100) 04/25/16 Unknown POC Glucose 77 (70-105) 04/28/16 07:37 Calcium 9.5 mg/dL (8.4-10.2) 04/25/16 Unknown Triglycerides 262 mg/dL (2-149) H 04/26/16 04:56 Cholesterol 229 mg/dL (50-199) H 04/26/16 04:56 LDL Cholesterol Direct 148 mg/dL (50-130) H 04/26/16 04:56 HDL Cholesterol 29 mg/dL (40-59) L 04/26/16 04:56 Cholesterol/HDL Ratio 7.89 % 04/26/16 04:56
--- NOTE | 2016-04-28 16:04 | Progress Note ---
Assessment and Plan Patient awake and resting at this time. He is on room air. O2 satuaration 100% .Blood pressure running OK today.. Can transfer to telemetry from pulmonary point of view. - Patient Problems (1) CVA (cerebral vascular accident) Current Visit: Yes Status: Acute Plan to address problem: Management as per neurology. (2) Right sided weakness Current Visit: Yes Status: Acute Plan to address problem: Recommend physical therapy. Management as per primary care and neurology. (3) Hypertension Current Visit: Yes Status: Acute Plan to address problem: Management as per primary care. Subjective Date of service: 04/28/16 Interval history: Patient awake and resting at this time. He is on room air. O2 satuaration 100% .Blood pressure running Ok at this time.. Can transfer to telemetry from pulmonary point of view. Objective Vital Signs - 12hr 04/28/16 04/28/16 04/28/16 04:00 04:30 05:00 Temperature 98.2 F Pulse Rate 83 82 81 Pulse Rate [ Apical] Pulse Rate [ From Monitor] Pulse Rate [ Left Radial] Respiratory 16 16 14 Rate Blood Pressure 118/85 127/85 127/85 O2 Sat by Pulse 96 96 98 Oximetry 04/28/16 04/28/16 04/28/16 05:30 06:00 06:30 Temperature Pulse Rate 73 73 84 Pulse Rate [ Apical] Pulse Rate [ From Monitor] Pulse Rate [ Left Radial] Respiratory 15 12 13 Rate Blood Pressure 123/81 119/74 111/79 O2 Sat by Pulse 99 99 97 Oximetry 04/28/16 04/28/16 04/28/16 07:00 07:23 07:30 Temperature Pulse Rate 80 74 79 Pulse Rate [ Apical] Pulse Rate [ From Monitor] Pulse Rate [ Left Radial] Respiratory 16 14 10 L Rate Blood Pressure 121/82 121/82 117/76 O2 Sat by Pulse 98 97 97 Oximetry 04/28/16 04/28/16 04/28/16 07:44 08:05 08:30 Temperature 97.6 F Pulse Rate 80 74 Pulse Rate [ Apical] Pulse Rate [ From Monitor] Pulse Rate [ Left Radial] Respiratory 17 Rate Blood Pressure 138/82 O2 Sat by Pulse 99 95 Oximetry 04/28/16 04/28/16 04/28/16 09:01 09:08 09:31 Temperature Pulse Rate 83 82 85 Pulse Rate [ Apical] Pulse Rate [ From Monitor] Pulse Rate [ Left Radial] Respiratory 24 18 Rate Blood Pressure 172/118 137/91 137/91 O2 Sat by Pulse 96 98 Oximetry 04/28/16 04/28/16 04/28/16 10:00 10:31 12:00 Temperature 98.0 F Pulse Rate 90 85 Pulse Rate [ 60 Apical] Pulse Rate [ 90 From Monitor] Pulse Rate [ 90 Left Radial] Respiratory 22 17 Rate Blood Pressure 146/90 146/90 O2 Sat by Pulse 98 96 Oximetry Constitutional: no acute distress, asleep Eyes: non-icteric ENT: oropharynx moist Neck: supple, no lymphadenopathy Ascultation: Bilateral: clear Cardiovascular: regular rate and rhythm Gastrointestinal: normoactive bowel sounds, soft, non-tender Integumentary: normal Extremities: no cyanosis, no edema Neurologic: pupils equal and round, CN II-XII normal, other (Right sided weakness.) CBC and BMP: 04/25/16 Unknown 04/25/16 Unknown ABG, PT/INR, D-dimer: PT/INR, D-dimer PT 13.4 Sec. (12.2-14.9) 04/25/16 Unknown INR 1.03 (0.87-1.13) 04/25/16 Unknown Abnormal lab findings: Abnormal Labs 04/26/16 04/26/16 04/27/16 00:32 04:56 22:47 POC Glucose 131 H 135 H Triglycerides 262 H Cholesterol 229 H LDL Cholesterol Direct 148 H HDL Cholesterol 29 L Chest x-ray: report reviewed (Reported unremarkable.), image reviewed
[2016-04-28] MEDS: MILK OF MAGNESIA PO PRN (18:11)
[2016-04-28] MEDS: ZOCOR PO SCH (21:47)
[2016-04-29] MEDS: MILK OF MAGNESIA PO PRN (01:27)
[2016-04-29] MEDS: GLUCOPHAGE PO SCH ×2 (07:55→18:11)
[2016-04-29] MEDS: ASPIRIN PO SCH (09:45)
[2016-04-29] MEDS: HCTZ PO SCH (09:45)
[2016-04-29] MEDS: ZESTRIL PO SCH (09:45)
[2016-04-29] MEDS: COREG PO SCH ×2 (09:45→22:59)
[2016-04-29] MEDS: PROCARDIA XL PO SCH ×2 (09:46→22:59)
[2016-04-29] MEDS: HABITROL TD SCH (09:46)
[2016-04-29] MEDS: PROTONIX PO SCH (09:46)
--- NOTE | 2016-04-29 10:53 | Magnetic Resonance Report ---
MRI BRAIN WITHOUT CONTRAST INDICATION: Stroke. COMPARISON: 04/26/[address] FINDINGS: Noncontrast multiplanar and multisequence MRI of the brain again demonstrates normal ventricles and sulci without acute or recent infarct, hemorrhage, mass effect or midline shift. No abnormal extra-axial masses or fluid collections. Normal major intracranial vascular flow voids. Left thalamic lacunar infarcts again noted, the larger approximately 7 mm, axial image 15, series 6. Normal posterior fossa with symmetric seventh and eighth nerve complexes. Preserved basilar cisterns. Normal eye globes. Moderate left and mild right maxillary sinus mucosal thickening inferiorly noted. Approximately 1.5 cm right sphenoid sinus mucous retention cyst. Approximately 1.5 cm polypoid mucosal thickening or retention cyst in the left maxillary sinus may also be noted, axial image 7, series 6. Mild right mid ethmoid and left frontal sinus mucosal thickening. Clear remainder imaged paranasal sinuses and temporal bone/mastoid air cells with left mastoid tip not well pneumatized. Normal midline structures without evidence of Chiari malformation. CONCLUSION: No acute intracranial CT abnormality with sinus disease noted and few other incidental findings, as above. Please correlate. Thank you for the opportunity to participate in this patient's care.
--- NOTE | 2016-04-29 15:00 | Progress Note ---
Assessment and Plan Patient transfered to telemetry.Patient awake and resting at this time. He is on room air. O2 satuaration 100%.Blood pressure still running High. No complaint of chest pain or shortness of breath. - Patient Problems (1) CVA (cerebral vascular accident) Current Visit: Yes Status: Acute Plan to address problem: Management as per neurology. (2) Right sided weakness Current Visit: Yes Status: Acute Plan to address problem: Recommend physical therapy. Management as per primary care and neurology. (3) Hypertension Current Visit: Yes Status: Acute Plan to address problem: Management as per primary care. (4) Tobacco abuse Current Visit: Yes Status: Acute Plan to address problem: Counselled to stop smoking. Subjective Date of service: 04/29/16 Interval history: Patient transfered to telemetry.Patient awake and resting at this time. He is on room air. O2 satuaration 100%.Blood pressure still running High. No complaint of chest pain or shortness of breath. Objective Vital Signs - 12hr 04/29/16 04/29/16 04/29/16 04:00 08:00 12:00 Temperature 98.1 F 97.8 F 98.9 F Pulse Rate [ 80 70 From Monitor] Pulse Rate [ 88 Left Radial] Respiratory 20 20 18 Rate Blood Pressure 130/72 Blood Pressure 130/86 160/91 [Left Arm] O2 Sat by Pulse 100 97 98 Oximetry Constitutional: no acute distress, asleep Eyes: non-icteric ENT: oropharynx moist Neck: supple, no lymphadenopathy Ascultation: Bilateral: clear Cardiovascular: regular rate and rhythm Gastrointestinal: normoactive bowel sounds, soft, non-tender Integumentary: normal Extremities: no cyanosis, no edema Neurologic: pupils equal and round, CN II-XII normal, other (Right sided weakness.) Psychiatric: depressed CBC and BMP: 04/25/16 Unknown 04/25/16 Unknown ABG, PT/INR, D-dimer: PT/INR, D-dimer PT 13.4 Sec. (12.2-14.9) 04/25/16 Unknown INR 1.03 (0.87-1.13) 04/25/16 Unknown Abnormal lab findings: Abnormal Labs 04/26/16 04/26/16 04/27/16 00:32 04:56 22:47 POC Glucose 131 H 135 H Triglycerides 262 H Cholesterol 229 H LDL Cholesterol Direct 148 H HDL Cholesterol 29 L 04/29/16 11:49 POC Glucose 110 H Triglycerides Cholesterol LDL Cholesterol Direct HDL Cholesterol Chest x-ray: report reviewed (Unremarkable chest xray.), image reviewed
[2016-04-29] MEDS: APRESOLINE IV PRN (18:14)
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
[2016-04-29] MEDS: ZOCOR PO SCH (22:59)
[2016-04-30] MEDS: APRESOLINE IV PRN (05:59)
--- NOTE | 2016-04-30 09:37 | Vascular Lab Report ---
CAROTID DUPLEX STUDY: RIGHT PSVEDV CCA [id number] CCA DIST:[id number] ICA PROX:7217 ICA MID:6527 ICA DIST:8633 ECA: 84 VERT: 33 13 LEFT PSVEDV CCA PROX:[id number] CCA DIST:9015 ICA PROX:7021 ICA MID:5524 ICA DIST:6027 ECA: 98 VERT: 31 7 REASON FOR EXAM: Stroke. COMMENTS ON THE RIGHT: Doppler frequency analysis is consistent with 16 to 49 percent diameter reduction of the internal carotid artery. Minimal amount of plaque is seen. The common carotid artery is patent. The external carotid artery is patent. The vertebral artery has antegrade flow. COMMENTS ON THE LEFT: Doppler frequency analysis is consistent with 16 to 49 percent diameter reduction of the internal carotid artery. Minimal amount of plaque is seen. The common carotid artery is patent. The external carotid artery is patent. The vertebral artery has antegrade flow. IMPRESSION: Less than 50% diameter reduction in the internal carotid arteries bilaterally. Consider repeat carotid artery duplex in 12 months.
[2016-04-30] MEDS: GLUCOPHAGE PO SCH ×2 (09:46→16:39)
[2016-04-30] MEDS: HCTZ PO SCH (09:47)
[2016-04-30] MEDS: ZESTRIL PO SCH (09:48)
[2016-04-30] MEDS: PROTONIX PO SCH (09:49)
[2016-04-30] MEDS: HABITROL TD SCH (09:53)
[2016-04-30] MEDS: ASPIRIN PO SCH (09:53)
[2016-04-30] MEDS: ULTRAM PO PRN (11:24)
[2016-04-30] MEDS: TYLENOL PO PRN (15:07)
[2016-04-30] MEDS: COREG PO SCH ×2 (16:43→22:17)
[2016-04-30] MEDS: PROCARDIA XL PO SCH ×2 (16:44→22:17)
--- NOTE | 2016-04-30 19:16 | Progress Note ---
Assessment and Plan Assessment and plan: 1. Suspected new CVA Patient with previous strokes and residual right-sided hemiparesis presented for worsening right sided neurological deficits CT head with no acute findings, showing only old lacunar infarcts Status post TPA on admission and repeat CT head with no hemorrhage or other new findings Brain MRI obtained and there are no acute findings Also carotid Doppler with less than 50% stenosis bilaterally Continue antiplatelet and statin therapy along with PT 2. Malignant hypertension On Cardene drip on admission and then transitioned to by mouth medications Currently on Coreg, hydralazine, HCTZ, Procardia, lisinopril Patient refusing some medications and BP difficult to control; asking for clonidine which I was hesitant to restart due to rebound hypertension Long discussion with patient regarding importance of adherence to treatment Adjusting regimen 3. Hyperlipidemia LDL 148, HDL 29, HD 260 Started on statin 4. Diabetes type 2 Continue metformin BS in low 100s 5. Tobacco abuse Nicotine patch Counseled regarding importance of quitting 6. Obesity Counseled regarding importance of losing quaint and lifestyle changes 7. Noncompliance Counseled regarding importance of adherence to treatment and follow-up appointments; options in this area given, but he is from [place] 8. DVT prophylaxis Lovenox 9. Discharge planning issues Patient from [place], came here in visit to his sister, now stating that is homeless telephonic case manager consulted for assistance History Interval history: Refused one of BP meds in am; his home antihypertensive regimen not clear (he has multiple medications listed and doesn't know exactly what he is taking) Also, did not work with PT today Hospitalist Physical - Constitutional Vitals: Temp Pulse Resp BP Pulse Ox 97.3 F L 97 H 18 183/107 100 04/30/16 15:52 04/30/16 18:17 04/30/16 18:17 04/30/16 18:17 04/30/16 15:52 General appearance: Present: no acute distress, obese - EENT Eyes: Present: PERRL, EOM intact. Absent: scleral icterus, conjunctival injection - Neck Neck: Present: supple, normal ROM. Absent: masses or JVD - Respiratory Respiratory effort: normal Respiratory: bilateral: CTA, negative: rales, rhonchi, wheezing - Cardiovascular Rhythm: regular Heart Sounds: Present: S1 & S2. Absent: systolic murmur - Extremities Extremities: no ischemia - Abdominal General gastrointestinal: soft, non-tender, non-distended, normal bowel sounds - Integumentary Integumentary: Present: warm, dry. Absent: jaundice, rash - Psychiatric Psychiatric: cooperative - Neurologic Neurologic: other (right-sided hemiparesis) Results - Labs CBC & Chem 7: 04/25/16 Unknown 04/25/16 Unknown Labs: Laboratory Last Values WBC 7.0 K/mm3 (4.5-11.0) 04/25/16 Unknown RBC 4.56 M/mm3 (3.65-5.03) 04/25/16 Unknown Hgb 12.9 gm/dl (11.8-15.2) 04/25/16 Unknown Hct 39.1 % (35.5-45.6) 04/25/16 Unknown MCV 86 fl (84-94) 04/25/16 Unknown MCH 28 pg (28-32) 04/25/16 Unknown MCHC 33 % (32-34) 04/25/16 Unknown RDW 14.6 % (13.2-15.2) 04/25/16 Unknown Plt Count 250 K/mm3 (140-440) 04/25/16 Unknown PT 13.4 Sec. (12.2-14.9) 04/25/16 Unknown INR 1.03 (0.87-1.13) 04/25/16 Unknown APTT 26.2 Sec. (24.2-36.6) 04/25/16 Unknown Thrombin Time 15.9 Sec. (15.1-19.6) 04/25/16 Unknown Sodium 143 mmol/L (137-145) 04/25/16 Unknown Potassium 4.7 mmol/L (3.6-5.0) 04/25/16 Unknown Chloride 101.7 mmol/L (98-107) 04/25/16 Unknown Carbon Dioxide 26 mmol/L (22-30) 04/25/16 Unknown Anion Gap 20 mmol/L 04/25/16 Unknown BUN 14 mg/dL (9-20) 04/25/16 Unknown Creatinine 1.1 mg/dL (0.8-1.5) 04/25/16 Unknown Estimated GFR > 60 ml/min 04/25/16 Unknown BUN/Creatinine Ratio 12.72 % 04/25/16 Unknown Glucose 93 mg/dL (75-100) 04/25/16 Unknown POC Glucose 115 (70-105) H 04/30/16 11:06 Calcium 9.5 mg/dL (8.4-10.2) 04/25/16 Unknown Triglycerides 262 mg/dL (2-149) H 04/26/16 04:56 Cholesterol 229 mg/dL (50-199) H 04/26/16 04:56 LDL Cholesterol Direct 148 mg/dL (50-130) H 04/26/16 04:56 HDL Cholesterol 29 mg/dL (40-59) L 04/26/16 04:56 Cholesterol/HDL Ratio 7.89 % 04/26/16 04:56 - Imaging and Cardiology CT Scan - head: report reviewed (no acute findings; old lacunar infarct left thalamus and left basal ganglia) MRI - head: report reviewed (no acute abnormality) Venous US: report reviewed (carotid Doppler - less than 50% stenosis bilateral) Imaging and Cardiology: Echocardiogram - symmetrical septal hypertrophy, EF 55-60%, abnormal diastolic filling
--- NOTE | 2016-04-30 20:10 | Progress Note ---
Assessment and Plan Patient Sleeping at this time on room air. O2 satuaration 98%.Blood pressure running better.. No complaint of chest pain or shortness of breath. - Patient Problems (1) CVA (cerebral vascular accident) Current Visit: Yes Status: Acute Plan to address problem: Management as per neurology. (2) Right sided weakness Current Visit: Yes Status: Acute Plan to address problem: Recommend physical therapy. Management as per primary care and neurology. (3) Hypertension Current Visit: Yes Status: Acute Plan to address problem: Management as per primary care. (4) Tobacco abuse Current Visit: Yes Status: Acute Plan to address problem: Counselled to stop smoking. Subjective Date of service: 04/30/16 Interval history: Patient sleeping at this time on room air. O2 satuaration 98%.Blood pressure is running better.. No complaint of chest pain or shortness of breath. Objective Vital Signs - 12hr 04/30/16 04/30/16 04/30/16 08:10 09:48 10:00 Temperature 98.1 F Pulse Rate 92 H Pulse Rate [ 92 H Right] Respiratory 20 Rate Blood Pressure 175/93 Blood Pressure 175/93 [Right Arm] O2 Sat by Pulse 98 Oximetry 04/30/16 04/30/16 04/30/16 11:27 15:52 18:17 Temperature 98.2 F 97.3 F L Pulse Rate Pulse Rate [ 95 H 95 H 97 H Right] Respiratory 20 18 18 Rate Blood Pressure Blood Pressure 211/106 190/91 183/107 [Right Arm] O2 Sat by Pulse 99 100 Oximetry 04/30/16 19:00 Temperature 98.5 F Pulse Rate Pulse Rate [ 91 H Right] Respiratory 20 Rate Blood Pressure Blood Pressure 148/86 [Right Arm] O2 Sat by Pulse 98 Oximetry Constitutional: no acute distress, asleep Eyes: non-icteric ENT: oropharynx moist Neck: supple, no lymphadenopathy Ascultation: Bilateral: clear Cardiovascular: regular rate and rhythm Gastrointestinal: normoactive bowel sounds, soft, non-tender Integumentary: normal Extremities: no cyanosis, no edema Neurologic: pupils equal and round, CN II-XII normal, other (Right sided weakness.) Psychiatric: depressed CBC and BMP: 04/25/16 Unknown 04/25/16 Unknown ABG, PT/INR, D-dimer: PT/INR, D-dimer PT 13.4 Sec. (12.2-14.9) 04/25/16 Unknown INR 1.03 (0.87-1.13) 04/25/16 Unknown Abnormal lab findings: Abnormal Labs 04/26/16 04/26/16 04/27/16 00:32 04:56 22:47 POC Glucose 131 H 135 H Triglycerides 262 H Cholesterol 229 H LDL Cholesterol Direct 148 H HDL Cholesterol 29 L 04/29/16 04/29/16 04/30/16 11:49 16:18 11:06 POC Glucose 110 H 126 H 115 H Triglycerides Cholesterol LDL Cholesterol Direct HDL Cholesterol
[2016-04-30] MEDS: ZOCOR PO SCH (22:17)
[2016-05-01] MEDS: ULTRAM PO PRN ×3 (00:10→17:26)
[2016-05-01] MEDS: CATAPRES PO SCH ×6 (00:34→21:43)
[2016-05-01] MEDS ORDERED: CATAPRES PO SCH (01:00)
[2016-05-01] MEDS: PROTONIX PO SCH (10:00)
[2016-05-01] MEDS: HCTZ PO SCH (10:00)
[2016-05-01] MEDS: HABITROL TD SCH (10:07)
[2016-05-01] MEDS: GLUCOPHAGE PO SCH ×2 (10:09→17:08)
[2016-05-01] MEDS: ASPIRIN PO SCH (10:09)
--- NOTE | 2016-05-01 16:25 | Progress Note ---
Assessment and Plan Assessment and plan: 1. Suspected new CVA Patient with previous strokes and residual right-sided hemiparesis presented for worsening right sided neurological deficits CT head with no acute findings, showing only old lacunar infarcts Status post TPA on admission and repeat CT head with no hemorrhage or other new findings Brain MRI obtained and there are no acute findings Also carotid Doppler with less than 50% stenosis bilaterally Continue antiplatelet and statin therapy along with PT 2. Malignant hypertension On Cardene drip on admission and then transitioned to by mouth medications In his chart listed Coreg, hydralazine, HCTZ, nifedipine, lisinopril, clonidine SBP in 110s this morning Will discontinue beta hedy due to interaction with clonidine and nifedipine Continue clonidine, lisinopril (as he has diabetes also) and HCTZ Monitor BP and make further adjustments if needed Discussed with patient again about adherence 3. Hyperlipidemia LDL 148, HDL 29, HD 260 Started on statin 4. Diabetes type 2 Continue metformin BS in low 100s 5. Tobacco abuse Nicotine patch Counseled regarding importance of quitting 6. Obesity Counseled regarding importance of losing weight and lifestyle changes 7. Noncompliance Counseled regarding importance of adherence to treatment and follow-up appointments 8. DVT prophylaxis Lovenox 9. Discharge planning issues Patient from [place], came here in visit to his sister, now stating that is homeless environmental sustainability manager consulted for assistance History Interval history: BP with 2 normal limits today after taking his medications Hospitalist Physical - Constitutional Vitals: Temp Pulse Resp BP Pulse Ox 97.6 F 88 20 139/87 100 05/01/16 12:20 05/01/16 12:20 05/01/16 12:20 05/01/16 12:20 05/01/16 12:20 General appearance: Present: no acute distress, obese - EENT Eyes: Present: PERRL, EOM intact. Absent: scleral icterus, conjunctival injection - Neck Neck: Present: supple, normal ROM. Absent: masses or JVD - Respiratory Respiratory effort: normal Respiratory: bilateral: CTA, negative: rales, rhonchi, wheezing - Cardiovascular Rhythm: regular Heart Sounds: Present: S1 & S2. Absent: systolic murmur - Extremities Extremities: no ischemia - Abdominal General gastrointestinal: soft, non-tender, non-distended, normal bowel sounds - Psychiatric Psychiatric: cooperative - Neurologic Neurologic: other (right-sided hemiparesis) Results - Labs CBC & Chem 7: 04/25/16 Unknown 04/25/16 Unknown Labs: Laboratory Last Values WBC 7.0 K/mm3 (4.5-11.0) 04/25/16 Unknown RBC 4.56 M/mm3 (3.65-5.03) 04/25/16 Unknown Hgb 12.9 gm/dl (11.8-15.2) 04/25/16 Unknown Hct 39.1 % (35.5-45.6) 04/25/16 Unknown MCV 86 fl (84-94) 04/25/16 Unknown MCH 28 pg (28-32) 04/25/16 Unknown MCHC 33 % (32-34) 04/25/16 Unknown RDW 14.6 % (13.2-15.2) 04/25/16 Unknown Plt Count 250 K/mm3 (140-440) 04/25/16 Unknown PT 13.4 Sec. (12.2-14.9) 04/25/16 Unknown INR 1.03 (0.87-1.13) 04/25/16 Unknown APTT 26.2 Sec. (24.2-36.6) 04/25/16 Unknown Thrombin Time 15.9 Sec. (15.1-19.6) 04/25/16 Unknown Sodium 143 mmol/L (137-145) 04/25/16 Unknown Potassium 4.7 mmol/L (3.6-5.0) 04/25/16 Unknown Chloride 101.7 mmol/L (98-107) 04/25/16 Unknown Carbon Dioxide 26 mmol/L (22-30) 04/25/16 Unknown Anion Gap 20 mmol/L 04/25/16 Unknown BUN 14 mg/dL (9-20) 04/25/16 Unknown Creatinine 1.1 mg/dL (0.8-1.5) 04/25/16 Unknown Estimated GFR > 60 ml/min 04/25/16 Unknown BUN/Creatinine Ratio 12.72 % 04/25/16 Unknown Glucose 93 mg/dL (75-100) 04/25/16 Unknown POC Glucose 115 (70-105) H 04/30/16 11:06 Calcium 9.5 mg/dL (8.4-10.2) 04/25/16 Unknown Triglycerides 262 mg/dL (2-149) H 04/26/16 04:56 Cholesterol 229 mg/dL (50-199) H 04/26/16 04:56 LDL Cholesterol Direct 148 mg/dL (50-130) H 04/26/16 04:56 HDL Cholesterol 29 mg/dL (40-59) L 04/26/16 04:56 Cholesterol/HDL Ratio 7.89 % 04/26/16 04:56
--- NOTE | 2016-05-01 20:30 | Progress Note ---
Assessment and Plan Patient is on room air at this time. O2 satuaration 99%.Blood pressure is running better.. No complaint of chest pain or shortness of breath. - Patient Problems (1) CVA (cerebral vascular accident) Current Visit: Yes Status: Acute Plan to address problem: Management as per neurology. (2) Right sided weakness Current Visit: Yes Status: Acute Plan to address problem: Recommend physical therapy. Management as per primary care and neurology. (3) Hypertension Current Visit: Yes Status: Acute Plan to address problem: Management as per primary care. (4) Tobacco abuse Current Visit: Yes Status: Acute Plan to address problem: Counselled to stop smoking. Subjective Date of service: 05/01/16 Interval history: Patient is on room air at this time. O2 satuaration 99%.Blood pressure is running better.. No complaint of chest pain or shortness of breath. Objective Vital Signs - 12hr 05/01/16 05/01/16 12:20 15:49 Temperature 97.6 F 98.0 F Pulse Rate [ 88 94 H Right] Respiratory 20 20 Rate Blood Pressure 139/87 134/79 [Right Arm] O2 Sat by Pulse 100 99 Oximetry Constitutional: no acute distress, asleep Eyes: non-icteric ENT: oropharynx moist Neck: supple, no lymphadenopathy Ascultation: Bilateral: clear Cardiovascular: regular rate and rhythm Gastrointestinal: normoactive bowel sounds, soft, non-tender Integumentary: normal Extremities: no cyanosis, no edema Neurologic: pupils equal and round, CN II-XII normal, other (Right sided weakness.) Psychiatric: depressed CBC and BMP: 04/25/16 Unknown 04/25/16 Unknown ABG, PT/INR, D-dimer: PT/INR, D-dimer PT 13.4 Sec. (12.2-14.9) 04/25/16 Unknown INR 1.03 (0.87-1.13) 04/25/16 Unknown Abnormal lab findings: Abnormal Labs 04/26/16 04/26/16 04/27/16 00:32 04:56 22:47 POC Glucose 131 H 135 H Triglycerides 262 H Cholesterol 229 H LDL Cholesterol Direct 148 H HDL Cholesterol 29 L 04/29/16 04/29/16 04/30/16 11:49 16:18 11:06 POC Glucose 110 H 126 H 115 H Triglycerides Cholesterol LDL Cholesterol Direct HDL Cholesterol
[2016-05-01] MEDS: ZOCOR PO SCH (21:43)
[2016-05-02] MEDS: ULTRAM PO PRN (09:54)
[2016-05-02] MEDS: ASPIRIN PO SCH (09:54)
[2016-05-02] MEDS: PROTONIX PO SCH (09:54)
[2016-05-02] MEDS: GLUCOPHAGE PO SCH (09:54)
[2016-05-02] MEDS: CATAPRES PO SCH (09:55)
[2016-05-02] MEDS: HABITROL TD SCH (09:55)
[2016-05-02] MEDS: HCTZ PO SCH (09:55)
[2016-05-02] MEDS ORDERED: ZESTRIL PO SCH (10:00)
[2016-05-02 13:50] VITALS: BP 132/81
--- NOTE | 2016-05-02 16:01 | Discharge Summary ---
Providers - Providers Date of Admission: 04/25/16 22:19 Date of discharge: 05/02/16 Attending physician: MIRA MYRICK 04/26/16 06:42 Consult to Physician [CONS] Routine Consulting Provider: ALLISON DAWN Reason For Exam: cc Notified:: legal secretary pl call 04/28/16 10:53 Consult to Case Management [CONS] Routine Services Needed at Discharge: Other Notified:: case briefer Additional Physician Instructions: skilled PT Primary care physician: [facility]IE[facility]ARD Hospitalization Reason for admission: worsening right sided weakness Condition: Stable Disposition: DISCHARGED TO HOME OR SELFCARE Time spent for discharge: 35 min Exam - Constitutional Vitals: Temp Pulse Resp BP Pulse Ox 98.4 F 78 20 132/81 98 05/02/16 12:15 05/02/16 12:15 05/02/16 12:15 05/02/16 12:15 05/02/16 12:15 Plan Activity: advance as tolerated, fall precautions Diet: low cholesterol, low salt, diabetic Follow up with: PRIMARY CARE,MD [Primary Care Provider] - 3-5 Days Prescriptions: Simvastatin [Zocor TAB] 20 mg PO QHS #30 tablet Aspirin [Aspirin TAB] 325 mg PO QDAY #30 tablet cloNIDine [Catapres] 0.2 mg PO BID #60 tablet metFORMIN [Glucophage] 500 mg PO BID #60 tablet Hydrochlorothiazide [HCTZ] 25 mg PO QDAY #30 tablet Pantoprazole [Protonix TAB] 20 mg PO DAILY #30 tablet. Lisinopril [Zestril TAB] 10 mg PO QDAY #30 tablet
== END 2016-05-02 16:29 | disposition home or self-care (01) | DRG 62 ==
LOC: ED 20:00 → CC1 22:19 → 4A 04-28 19:13
PROVIDERS: ADMIT Internal Medicine; ATTEND Internal Medicine
DX: I63.9 Cerebral infarction, unspecified (principal); I69.351 Hemiplegia and hemiparesis following cerebral infarction affecting right dominant side; E11.9 Type 2 diabetes mellitus without complications; I10 Essential (primary) hypertension; F12.90 Cannabis use, unspecified, uncomplicated; F17.210 Nicotine dependence, cigarettes, uncomplicated; E78.5 Hyperlipidemia, unspecified; E66.9 Obesity, unspecified; I69.322 Dysarthria following cerebral infarction; Z82.49 Family history of ischemic heart disease and other diseases of the circulatory system; Z88.8 Allergy status to other drugs, medicaments and biological substances; Z91.19 Patient's noncompliance with other medical treatment and regimen; Z79.84 Long term (current) use of oral hypoglycemic drugs; Z68.33 Body mass index [BMI] 33.0-33.9, adult
CPT/HCPCS: 36415; 70450; 70551; 71020; 80048; 80061; 82962; 85027; 85610; 85670; 85730; 93005; 93010; 93306; 93880; 96374; 96375; 99406; J0360; J1200; J2270; J2405; J2997